=== PATIENT | female | born 1960 | race Caucasian/White ===

== ENCOUNTER → 2017-06-01 | Outpatient (CLI) | payer BC ==
[~2017-06-01] MED LIST: Ascorbic Acid,Ester- PO; DIOVAN80 MG PO; Deltasone PO; Duragesic TD; Folvite PO; PROTONIX40 MG PO; TREXALL10 MG PO; VITAMIN D1000 INTUN PO; Vitamin-E PO
== END | disposition home or self-care (01) ==
DX: R13.11 Dysphagia, oral phase (principal)
CPT/HCPCS: 92611 GN